=== PATIENT | female | born 1935 | race Caucasian/White ===

== ENCOUNTER 2018-02-07 10:09 | Inpatient (IN) | payer MEDICARE, OTHER ==
[~2018-02-07] VITALS: Ht 157.5 cm; Wt 62.8 kg
[2018-02-07 10:43] LABS: BASOPHILS % (AUTO) 0.1 % (0-1); EOSINOPHILS % (AUTO) 0 % (0-6); HEMATOCRIT 39.1 % (35.0-45.0); HEMOGLOBIN 13.1 g/dl (12.0-16.0); LYMPHOCYTES # (AUTO) 1.5 X10'3 (1.1-4.8); LYMPHOCYTES % (AUTO) 6.9 % (21-51); MEAN CORPUSCULAR HEMOGLOBIN 31.3 PG (27.0-31.0); MEAN CORPUSCULAR HGB CONC 33.5 % (33.0-36.5); MEAN CORPUSCULAR VOLUME 93.6 FL (78-98); MEAN PLATELET VOLUME 9.1 FL (7.4-10.4); MONOCYTES # (AUTO) 1.5 X10'3 (0-0.9); MONOCYTES % (AUTO) 6.9 % (2-12); NEUTROPHILS # (AUTO) 19.2 X10'3 (1.8-7.7); NEUTROPHILS % (AUTO) 86.1 % (42-75); PLATELET COUNT 271 X10'3 (140-440); RED BLOOD COUNT 4.18 X10'6 (4.20-5.60); WHITE BLOOD COUNT 22.3 X10'3 (4.5-11.0)
[2018-02-07 10:55] LABS: INR 0.9 INR; PROTHROMBIN TIME 9.6 SECONDS (9.0-12.0)
[2018-02-07 10:56] LABS: PARTIAL THROMBOPLASTIN TIME 32 SECONDS (22-32)
[2018-02-07 10:58] LABS: ALANINE AMINOTRANSFERASE 34 U/L (12-78); ALBUMIN 2.9 G/DL (3.4-5.0); ALBUMIN/GLOBULIN RATIO 0.6 (1.1-1.5); ALKALINE PHOSPHATASE 88 IU/L (46-116); ANION GAP 12 (8-16); ASPARTATE AMINO TRANSFERASE 23 U/L (10-37); BILIRUBIN,TOTAL 1.2 MG/DL (0.1-1.0); BLOOD UREA NITROGEN 29 MG/DL (7-18); BUN/CREATININE RATIO 19.5 (6.6-38.0); CHLORIDE 98 MMOL/L (99-107); CREATININE 1.49 MG/DL (0.40-0.90); GLUCOSE 112 MG/DL (70-104); POTASSIUM 3.8 MMOL/L (3.5-5.1); SODIUM 137 MMOL/L (135-145); TOTAL CARBON DIOXIDE 26.8 MMOL/L (24-32); TOTAL PROTEIN 7.9 G/DL (6.4-8.2); eGFR 34 ML/MIN
[2018-02-07] MEDS ORDERED: enoxaparin 100mg/ml syringe SUBCUT ONE (12:45)
[2018-02-07] MEDS ORDERED: aspirin 81mg tab.chew PO ONE (12:45)
[2018-02-07] MEDS ORDERED: enoxaparin 60mg/0.6ml syringe SUBCUT ONE (12:50)
[2018-02-07] MEDS: furosemide 40mg/4ml inj IV SCH (13:30)
[2018-02-07] MEDS ORDERED: morphine 2 MG/ML inj. syringe IV PRN (13:30)
[2018-02-07] MEDS ORDERED: acetaminophen 325mg tablet PO PRN (13:30)
[2018-02-07] MEDS ORDERED: potassium Cl 20 mEq SR tablet PO PRN (13:30)
[2018-02-07] MEDS ORDERED: mag hydrox/Alum hydrox/simeth 30ml oral suspension PO PRN (13:30)
[2018-02-07] MEDS ORDERED: HYDROcodone/acetaminophen 5mg/325mg tablet PO PRN (13:30)
[2018-02-07] MEDS ORDERED: ondansetron/PF 4mg/2ml inj IV PRN (13:30)
[2018-02-07] MEDS ORDERED: magnesium 1gm/100ml D5W IVPB 100 ML IV PRN (13:30)
[2018-02-07] MEDS ORDERED: magnesium 4gm in 100ml NS 100 ML IV PRN (13:30)
[2018-02-07] MEDS ORDERED: potassium Cl 40MEQ/NS 500ml 500 ML IV PRN ×2 (13:30)
[2018-02-07] MEDS ORDERED: magnesium Cl slow-release 64mg tablet PO PRN (13:30)
[2018-02-07 13:52] LABS: TOTAL CELLS COUNTED 100
[2018-02-07 13:53] LABS: PLATELET ESTIMATE NORMAL; TOXIC GRANULATION 2+; TOXIC VACUOLATION 2+
[2018-02-07 15:32] LABS: CLARITY,URINE SLIGHTLY CLOUDY (Clear); COLOR,URINE YELLOW (Yellow); GLUCOSE, URINE NEGATIVE (Neg); KETONES,URINE >=80 mg/dl (Neg); LEUKOCYTE ESTERASE ,URINE SMALL (Neg); NITRITES, URINE NEGATIVE (Neg); OCCULT BLOOD,URINE MODERATE (Neg); PROTEIN,URINE 100 mg/dl (Neg); UROBILINOGEN,URINE 0.2 E.U/dL (0.2-1.0)
[2018-02-07 15:38] LABS: UA COLLECTION TYPE CLN CATCH MIDSTREAM
[2018-02-07 15:40] LABS: BACTERIA,URINE 4+ /HPF (Neg); SQUAMOUS EPITHELIAL CELL,UR MANY /LPF (FEW); TRANSITIONAL EPI CELLS,URINE FEW /HPF; WBC,URINE 30-50 /HPF (0-4)
[2018-02-07 15:41] LABS: RBC,URINE 0-2 /HPF (0-2)
[2018-02-07] MEDS ORDERED: LIOT5TAB7 PO (15:49)
[2018-02-07] MEDS ORDERED: THYROXINE PO (15:49)
[2018-02-07] MEDS ORDERED: AMLO-307 PO (15:49)
[2018-02-07] MEDS ORDERED: LOSA1TAB39 PO (15:49)
[2018-02-07 16:05] VITALS: BP 129/67
[2018-02-07] MEDS ORDERED: CALC-1051 PO (16:50)
[2018-02-07] MEDS ORDERED: ASPI81TA52 PO (16:50)
[2018-02-07] MEDS ORDERED: MAGN500C16 PO (16:50)
[2018-02-07] MEDS ORDERED: LEVO25TA7 PO (16:50)
[2018-02-07 18:00] VITALS: BP 149/64
[2018-02-08] VITALS: BP 156/68
[2018-02-08 05:38] LABS: BASOPHILS # (AUTO) 0.1 X10'3 (0-0.2); BASOPHILS % (AUTO) 0.4 % (0-1); EOSINOPHILS % (AUTO) 0.1 % (0-6); HEMATOCRIT 36.2 % (35.0-45.0); HEMOGLOBIN 12.3 g/dl (12.0-16.0); LYMPHOCYTES # (AUTO) 1.7 X10'3 (1.1-4.8); LYMPHOCYTES % (AUTO) 9.7 % (21-51); MEAN CORPUSCULAR HEMOGLOBIN 31.3 PG (27.0-31.0); MEAN CORPUSCULAR HGB CONC 33.9 % (33.0-36.5); MEAN CORPUSCULAR VOLUME 92.3 FL (78-98); MEAN PLATELET VOLUME 10.1 FL (7.4-10.4); MONOCYTES # (AUTO) 1.8 X10'3 (0-0.9); MONOCYTES % (AUTO) 10.2 % (2-12); NEUTROPHILS # (AUTO) 13.8 X10'3 (1.8-7.7); NEUTROPHILS % (AUTO) 79.6 % (42-75); PLATELET COUNT 261 X10'3 (140-440); RED BLOOD COUNT 3.92 X10'6 (4.20-5.60); RED CELL DISTRIBUTION WIDTH 13.6 % (11.5-14.5); WHITE BLOOD COUNT 17.3 X10'3 (4.5-11.0)
[2018-02-08 06:02] LABS: ALANINE AMINOTRANSFERASE 34 U/L (12-78); ALBUMIN 2.5 G/DL (3.4-5.0); ALBUMIN/GLOBULIN RATIO 0.5 (1.1-1.5); ALKALINE PHOSPHATASE 89 IU/L (46-116); ANION GAP 12 (8-16); ASPARTATE AMINO TRANSFERASE 34 U/L (10-37); BILIRUBIN,TOTAL 0.8 MG/DL (0.1-1.0); BLOOD UREA NITROGEN 27 MG/DL (7-18); BUN/CREATININE RATIO 22.1 (6.6-38.0); CALCIUM 8.6 MG/DL (8.5-10.1); CHLORIDE 99 MMOL/L (99-107); CREATININE 1.22 MG/DL (0.40-0.90); GLUCOSE 119 MG/DL (70-104); MAGNESIUM 1.6 MG/DL (1.5-2.4); SODIUM 136 MMOL/L (135-145); TOTAL CARBON DIOXIDE 24.9 MMOL/L (24-32); TOTAL PROTEIN 7.1 G/DL (6.4-8.2); eGFR 42 ML/MIN
[2018-02-08 06:30] LABS: POTASSIUM 2.8 MMOL/L (3.5-5.1)
[2018-02-08 06:35] LABS: TOTAL CELLS COUNTED 100
[2018-02-08 06:36] LABS: PLATELET ESTIMATE NORMAL
[2018-02-08] MEDS: K and/or MAG REPLACEMENT MC SCH (07:35)
[2018-02-08] MEDS: enoxaparin 40mg/0.4ml syringe SUBCUT SCH (07:44)
[2018-02-08] MEDS: furosemide 40mg/4ml inj IV SCH (07:44)
[2018-02-08 08:00] VITALS: BP 130/61
[2018-02-08 11:00] VITALS: BP 124/65
[2018-02-08] MEDS: potassium Cl 20 mEq SR tablet PO PRN ×2 (11:51→17:04)
[2018-02-08] MEDS ORDERED: nitroGLYCERIN 0.4mg SUBLingual tab SL PRN (12:05)
[2018-02-08] MEDS ORDERED: regadenoson 0.4mg/5ml syringe IV PRN (12:05)
[2018-02-08] MEDS ORDERED: aminophylline 250mg/10ml inj. IV PRN (12:05)
[2018-02-08] MEDS ORDERED: metoprolol tartrate 1mg/ml inj IV PRN (12:05)
[2018-02-08 13:03] LABS: CLARITY,URINE CLEAR (Clear); COLOR,URINE YELLOW (Yellow); GLUCOSE, URINE NEGATIVE (Neg); KETONES,URINE NEGATIVE (Neg); LEUKOCYTE ESTERASE ,URINE TRACE (Neg); OCCULT BLOOD,URINE SMALL (Neg); PROTEIN,URINE NEGATIVE (Neg); UROBILINOGEN,URINE 0.2 E.U/dL (0.2-1.0)
[2018-02-08 13:04] LABS: NITRITES, URINE NEGATIVE (Neg); UA COLLECTION TYPE VOIDED
[2018-02-08 13:10] LABS: BACTERIA,URINE 3+ /HPF (Neg); MUCUS STRANDS NONE SEEN /LPF (Neg); RBC,URINE 0-2 /HPF (0-2); SQUAMOUS EPITHELIAL CELL,UR NONE SEEN /LPF (FEW)
[2018-02-08] MEDS: magnesium hydroxide 30ml (MOM) UD suspension PO PRN (15:35)
[2018-02-08 18:00] VITALS: BP 131/70
[2018-02-08] MEDS: ciprofloxacin 250mg tablet PO SCH (22:51)
[2018-02-08] MEDS: temazepam 15mg capsule PO PRN (23:12)
[2018-02-09] VITALS (15 sets, daily range): BP systolic 95–156; BP diastolic 47–77
[2018-02-09 06:23] LABS: BASOPHILS % (AUTO) 0.1 % (0-1); EOSINOPHILS % (AUTO) 0.1 % (0-6); HEMATOCRIT 40.3 % (35.0-45.0); HEMOGLOBIN 13.5 g/dl (12.0-16.0); LYMPHOCYTES # (AUTO) 1.4 X10'3 (1.1-4.8); LYMPHOCYTES % (AUTO) 6.9 % (21-51); MEAN CORPUSCULAR HEMOGLOBIN 31.3 PG (27.0-31.0); MEAN CORPUSCULAR HGB CONC 33.6 % (33.0-36.5); MEAN CORPUSCULAR VOLUME 93.2 FL (78-98); MEAN PLATELET VOLUME 10.1 FL (7.4-10.4); MONOCYTES # (AUTO) 2.3 X10'3 (0-0.9); MONOCYTES % (AUTO) 11.1 % (2-12); NEUTROPHILS # (AUTO) 16.9 X10'3 (1.8-7.7); NEUTROPHILS % (AUTO) 81.8 % (42-75); PLATELET COUNT 303 X10'3 (140-440); RED BLOOD COUNT 4.32 X10'6 (4.20-5.60); RED CELL DISTRIBUTION WIDTH 13.9 % (11.5-14.5); WHITE BLOOD COUNT 20.7 X10'3 (4.5-11.0)
[2018-02-09 06:58] LABS: ALANINE AMINOTRANSFERASE 38 U/L (12-78); ALBUMIN 2.8 G/DL (3.4-5.0); ALBUMIN/GLOBULIN RATIO 0.5 (1.1-1.5); ALKALINE PHOSPHATASE 100 IU/L (46-116); ANION GAP 13 (8-16); ASPARTATE AMINO TRANSFERASE 28 U/L (10-37); BILIRUBIN,TOTAL 0.8 MG/DL (0.1-1.0); BLOOD UREA NITROGEN 27 MG/DL (7-18); BUN/CREATININE RATIO 21.8 (6.6-38.0); CALCIUM 9.1 MG/DL (8.5-10.1); CHLORIDE 100 MMOL/L (99-107); CREATININE 1.24 MG/DL (0.40-0.90); GLUCOSE 111 MG/DL (70-104); MAGNESIUM 1.8 MG/DL (1.5-2.4); POTASSIUM 4.3 MMOL/L (3.5-5.1); SODIUM 137 MMOL/L (135-145); TOTAL CARBON DIOXIDE 23.6 MMOL/L (24-32); TOTAL PROTEIN 8.2 G/DL (6.4-8.2); eGFR 41 ML/MIN
[2018-02-09 07:59] LABS: PLATELET ESTIMATE NORMAL; TOTAL CELLS COUNTED 100
[2018-02-09] MEDS: K and/or MAG REPLACEMENT MC SCH (08:00)
[2018-02-09] MEDS ORDERED: magnesium oxide 400mg tablet PO SCH (08:00)
[2018-02-09] MEDS: HYDROchlorothiazide 25mg tablet PO SCH (08:08)
[2018-02-09] MEDS: liothyronine sod 5mcg tablet PO SCH (08:08)
[2018-02-09] MEDS: atorvastatin 20mg tablet PO SCH (08:08)
[2018-02-09] MEDS: calcium carbonate/vitamin D3 tablet PO SCH (08:08)
[2018-02-09] MEDS: aspirin 81mg tablet.DR PO SCH (08:08)
[2018-02-09] MEDS: amLODIPine 5mg tablet PO SCH (08:08)
[2018-02-09] MEDS: losartan 50mg tablet PO SCH (08:08)
[2018-02-09] MEDS: magnesium oxide 400mg tablet PO SCH (08:09)
[2018-02-09] MEDS: furosemide 40mg/4ml inj IV SCH (08:09)
[2018-02-09] MEDS: levoTHYROXINE 25mcg tablet PO SCH (08:09)
[2018-02-09] MEDS: ciprofloxacin 250mg tablet PO SCH ×2 (09:38→21:55)
[2018-02-09] MEDS ORDERED: aminophylline inj. 10 ML IV ONE (11:19)
[2018-02-09] MEDS ORDERED: regadenoson 0.4mg/5ml syringe IV ONE (11:19)
[2018-02-09] MEDS: enoxaparin 40mg/0.4ml syringe SUBCUT SCH (12:34)
[2018-02-09] MEDS: CefTRIAXone/D5W-Rocephin 1gm 50 ML IV SCH (12:52)
[2018-02-09] MEDS ORDERED: Melatonin 3mg tablet PO PRN (16:10)
[2018-02-09] MEDS: temazepam 15mg capsule PO PRN (21:55)
[2018-02-10] VITALS: BP 128/70
[2018-02-10 04:39] LABS: BASOPHILS % (AUTO) 0.1 % (0-1); EOSINOPHILS % (AUTO) 0.1 % (0-6); HEMATOCRIT 38.1 % (35.0-45.0); HEMOGLOBIN 12.8 g/dl (12.0-16.0); LYMPHOCYTES # (AUTO) 1.4 X10'3 (1.1-4.8); LYMPHOCYTES % (AUTO) 6.8 % (21-51); MEAN CORPUSCULAR HEMOGLOBIN 30.9 PG (27.0-31.0); MEAN CORPUSCULAR HGB CONC 33.6 % (33.0-36.5); MEAN CORPUSCULAR VOLUME 92.2 FL (78-98); MEAN PLATELET VOLUME 9.2 FL (7.4-10.4); MONOCYTES # (AUTO) 2.3 X10'3 (0-0.9); MONOCYTES % (AUTO) 10.9 % (2-12); NEUTROPHILS % (AUTO) 82.1 % (42-75); PLATELET COUNT 337 X10'3 (140-440); RED BLOOD COUNT 4.14 X10'6 (4.20-5.60); WHITE BLOOD COUNT 20.7 X10'3 (4.5-11.0)
[2018-02-10 04:51] LABS: ALANINE AMINOTRANSFERASE 40 U/L (12-78); ALBUMIN 2.3 G/DL (3.4-5.0); ALBUMIN/GLOBULIN RATIO 0.5 (1.1-1.5); ALKALINE PHOSPHATASE 99 IU/L (46-116); ANION GAP 10 (8-16); ASPARTATE AMINO TRANSFERASE 35 U/L (10-37); BILIRUBIN,TOTAL 0.6 MG/DL (0.1-1.0); BLOOD UREA NITROGEN 31 MG/DL (7-18); BUN/CREATININE RATIO 21.7 (6.6-38.0); CALCIUM 9.2 MG/DL (8.5-10.1); CHLORIDE 99 MMOL/L (99-107); CREATININE 1.43 MG/DL (0.40-0.90); GLUCOSE 142 MG/DL (70-104); MAGNESIUM 1.8 MG/DL (1.5-2.4); POTASSIUM 3.6 MMOL/L (3.5-5.1); SODIUM 137 MMOL/L (135-145); TOTAL CARBON DIOXIDE 28.2 MMOL/L (24-32); TOTAL PROTEIN 7.4 G/DL (6.4-8.2); eGFR 35 ML/MIN
[2018-02-10 07:31] VITALS: BP 126/67
[2018-02-10] MEDS: K and/or MAG REPLACEMENT MC SCH (08:00)
[2018-02-10] MEDS: magnesium oxide 400mg tablet PO SCH (08:52)
[2018-02-10] MEDS: calcium carbonate/vitamin D3 tablet PO SCH (08:52)
[2018-02-10] MEDS: HYDROchlorothiazide 25mg tablet PO SCH (08:53)
[2018-02-10] MEDS: aspirin 81mg tablet.DR PO SCH (08:53)
[2018-02-10] MEDS: atorvastatin 20mg tablet PO SCH (08:54)
[2018-02-10] MEDS: amLODIPine 5mg tablet PO SCH (08:54)
[2018-02-10] MEDS: levoTHYROXINE 25mcg tablet PO SCH (08:54)
[2018-02-10] MEDS: furosemide 40mg/4ml inj IV SCH (08:57)
[2018-02-10] MEDS: enoxaparin 40mg/0.4ml syringe SUBCUT SCH (08:57)
[2018-02-10] MEDS: CefTRIAXone/D5W-Rocephin 1gm 50 ML IV SCH (09:06)
[2018-02-10] MEDS: losartan 50mg tablet PO SCH (09:09)
[2018-02-10] MEDS: ciprofloxacin 250mg tablet PO SCH (09:23)
[2018-02-10] MEDS: magnesium hydroxide 30ml (MOM) UD suspension PO PRN (12:37)
[2018-02-10] MEDS: liothyronine sod 5mcg tablet PO SCH (12:37)
[2018-02-10 12:43] VITALS: BP 103/58
[2018-02-10 12:46] VITALS: BP_SYST 103; BP_SYST 105; BP_SYST 80; BP_DIAS 53; BP_DIAS 55
[2018-02-10 13:44] VITALS: BP 99/57
[2018-02-10 14:37] LABS: CLARITY,URINE SLIGHTLY CLOUDY (Clear); COLOR,URINE YELLOW (Yellow); GLUCOSE, URINE NEGATIVE (Neg); KETONES,URINE NEGATIVE (Neg); LEUKOCYTE ESTERASE ,URINE SMALL (Neg); NITRITES, URINE NEGATIVE (Neg); OCCULT BLOOD,URINE TRACE-INTACT (Neg); PROTEIN,URINE NEGATIVE (Neg); UROBILINOGEN,URINE 0.2 E.U/dL (0.2-1.0)
[2018-02-10 14:48] LABS: UA COLLECTION TYPE NON-SPECIFIED
[2018-02-10 14:51] LABS: BACTERIA,URINE FEW /HPF (Neg); MUCUS STRANDS FEW /LPF (Neg); RBC,URINE 0-2 /HPF (0-2); SQUAMOUS EPITHELIAL CELL,UR MANY /LPF (FEW)
[2018-02-10] MEDS: normal saline 1000ml 1,000 ML IV SCH (17:33)
[2018-02-10] MEDS: lactobacillus rhamnosus 10,000 MMU CELLS/CAPSULE PO SCH (19:54)
[2018-02-10 20:00] VITALS: BP_SYST 115; BP_SYST 119; BP_SYST 120; BP_DIAS 62; BP_DIAS 70; BP_DIAS 75
[2018-02-11] VITALS: BP 132/63
[2018-02-11] MEDS ORDERED: bisacodyl 10mg suppository rectal RC STA (04:55)
[2018-02-11 06:11] LABS: BASOPHILS # (AUTO) 0.1 X10'3 (0-0.2); BASOPHILS % (AUTO) 0.3 % (0-1); EOSINOPHILS # (AUTO) 0.1 X10'3 (0-0.9); EOSINOPHILS % (AUTO) 0.3 % (0-6); HEMATOCRIT 36.4 % (35.0-45.0); HEMOGLOBIN 12.1 g/dl (12.0-16.0); LYMPHOCYTES % (AUTO) 8.6 % (21-51); MEAN CORPUSCULAR HEMOGLOBIN 30.9 PG (27.0-31.0); MEAN CORPUSCULAR HGB CONC 33.2 % (33.0-36.5); MEAN CORPUSCULAR VOLUME 92.8 FL (78-98); MEAN PLATELET VOLUME 9.9 FL (7.4-10.4); MONOCYTES # (AUTO) 2.1 X10'3 (0-0.9); NEUTROPHILS # (AUTO) 18.7 X10'3 (1.8-7.7); NEUTROPHILS % (AUTO) 81.8 % (42-75); PLATELET COUNT 355 X10'3 (140-440); RED BLOOD COUNT 3.92 X10'6 (4.20-5.60); RED CELL DISTRIBUTION WIDTH 13.8 % (11.5-14.5); WHITE BLOOD COUNT 22.8 X10'3 (4.5-11.0)
[2018-02-11 06:39] LABS: ALANINE AMINOTRANSFERASE 45 U/L (12-78); ALBUMIN 2.1 G/DL (3.4-5.0); ALBUMIN/GLOBULIN RATIO 0.4 (1.1-1.5); ALKALINE PHOSPHATASE 101 IU/L (46-116); ANION GAP 11 (8-16); ASPARTATE AMINO TRANSFERASE 45 U/L (10-37); BILIRUBIN,TOTAL 0.5 MG/DL (0.1-1.0); BLOOD UREA NITROGEN 36 MG/DL (7-18); BUN/CREATININE RATIO 23.4 (6.6-38.0); CALCIUM 8.9 MG/DL (8.5-10.1); CHLORIDE 97 MMOL/L (99-107); CREATININE 1.54 MG/DL (0.40-0.90); GLUCOSE 134 MG/DL (70-104); MAGNESIUM 1.7 MG/DL (1.5-2.4); POTASSIUM 3.2 MMOL/L (3.5-5.1); SODIUM 135 MMOL/L (135-145); TOTAL CARBON DIOXIDE 27.1 MMOL/L (24-32); TOTAL PROTEIN 7.1 G/DL (6.4-8.2); eGFR 32 ML/MIN
[2018-02-11 07:00] VITALS: BP 118/54
[2018-02-11 08:00] VITALS: BP_SYST 104; BP_SYST 108; BP_SYST 99; BP_DIAS 51; BP_DIAS 52; BP_DIAS 58
[2018-02-11] MEDS: K and/or MAG REPLACEMENT MC SCH ×2 (08:00→09:45)
[2018-02-11] MEDS: CefTRIAXone/D5W-Rocephin 1gm 50 ML IV SCH (08:40)
[2018-02-11] MEDS: atorvastatin 20mg tablet PO SCH (08:42)
[2018-02-11] MEDS: magnesium oxide 400mg tablet PO SCH (08:42)
[2018-02-11] MEDS: levoTHYROXINE 25mcg tablet PO SCH (08:42)
[2018-02-11] MEDS: calcium carbonate/vitamin D3 tablet PO SCH (08:42)
[2018-02-11] MEDS: aspirin 81mg tablet.DR PO SCH (08:42)
[2018-02-11] MEDS: amLODIPine 5mg tablet PO SCH (08:42)
[2018-02-11] MEDS: lactobacillus rhamnosus 10,000 MMU CELLS/CAPSULE PO SCH ×2 (08:42→20:07)
[2018-02-11] MEDS: losartan 50mg tablet PO SCH (08:43)
[2018-02-11] MEDS: liothyronine sod 5mcg tablet PO SCH (09:16)
[2018-02-11] MEDS: enoxaparin 40mg/0.4ml syringe SUBCUT SCH (09:17)
[2018-02-11] MEDS ORDERED: potassium Cl 40MEQ/NS 500ml 500 ML IV PRN ×2 (09:45)
[2018-02-11] MEDS ORDERED: potassium Cl 20 mEq SR tablet PO PRN (09:45)
[2018-02-11] MEDS: potassium Cl 20 mEq SR tablet PO PRN ×3 (10:16→20:10)
[2018-02-11 10:39] LABS: CLARITY,URINE SLIGHTLY CLOUDY (Clear); COLOR,URINE YELLOW (Yellow); GLUCOSE, URINE NEGATIVE (Neg); KETONES,URINE NEGATIVE (Neg); LEUKOCYTE ESTERASE ,URINE TRACE (Neg); NITRITES, URINE NEGATIVE (Neg); OCCULT BLOOD,URINE TRACE-INTACT (Neg); PROTEIN,URINE NEGATIVE (Neg); UROBILINOGEN,URINE 0.2 E.U/dL (0.2-1.0)
[2018-02-11 10:45] LABS: UA COLLECTION TYPE CLN CATCH MIDSTREAM
[2018-02-11 11:01] LABS: WBC,URINE 20-30 /HPF (0-4)
[2018-02-11 11:08] LABS: BACTERIA,URINE FEW /HPF (Neg); RBC,URINE 0-2 /HPF (0-2)
[2018-02-11 11:09] LABS: CELLULAR CAST 0-4 /LPF (NEGATIVE); SQUAMOUS EPITHELIAL CELL,UR FEW /LPF (FEW)
[2018-02-11 12:00] VITALS: BP 99/58
[2018-02-11 12:38] LABS: D-DIMER 2.02 MG/L FEU (0-0.50)
[2018-02-11] MEDS: normal saline 1000ml 1,000 ML IV SCH (14:24)
[2018-02-11 20:00] VITALS: BP_SYST 111; BP_SYST 116; BP_DIAS 52; BP_DIAS 56
[2018-02-12 00:19] VITALS: BP 124/62
[2018-02-12 06:14] LABS: BASOPHILS # (AUTO) 0.1 X10'3 (0-0.2); BASOPHILS % (AUTO) 0.5 % (0-1); EOSINOPHILS # (AUTO) 0.3 X10'3 (0-0.9); EOSINOPHILS % (AUTO) 1.2 % (0-6); HEMATOCRIT 36.8 % (35.0-45.0); HEMOGLOBIN 12.2 g/dl (12.0-16.0); LYMPHOCYTES # (AUTO) 2.6 X10'3 (1.1-4.8); LYMPHOCYTES % (AUTO) 10.9 % (21-51); MEAN CORPUSCULAR HGB CONC 33.1 % (33.0-36.5); MEAN CORPUSCULAR VOLUME 93.5 FL (78-98); MEAN PLATELET VOLUME 9.6 FL (7.4-10.4); MONOCYTES # (AUTO) 1.1 X10'3 (0-0.9); MONOCYTES % (AUTO) 4.6 % (2-12); NEUTROPHILS # (AUTO) 19.6 X10'3 (1.8-7.7); NEUTROPHILS % (AUTO) 82.8 % (42-75); PLATELET COUNT 435 X10'3 (140-440); RED BLOOD COUNT 3.93 X10'6 (4.20-5.60); RED CELL DISTRIBUTION WIDTH 14.1 % (11.5-14.5); WHITE BLOOD COUNT 23.6 X10'3 (4.5-11.0)
[2018-02-12 06:34] LABS: ALANINE AMINOTRANSFERASE 58 U/L (12-78); ALBUMIN/GLOBULIN RATIO 0.4 (1.1-1.5); ALKALINE PHOSPHATASE 105 IU/L (46-116); ANION GAP 9 (8-16); ASPARTATE AMINO TRANSFERASE 57 U/L (10-37); BILIRUBIN,TOTAL 0.5 MG/DL (0.1-1.0); BLOOD UREA NITROGEN 36 MG/DL (7-18); BUN/CREATININE RATIO 19.6 (6.6-38.0); CALCIUM 8.9 MG/DL (8.5-10.1); CHLORIDE 101 MMOL/L (99-107); CREATININE 1.84 MG/DL (0.40-0.90); GLUCOSE 107 MG/DL (70-104); MAGNESIUM 1.9 MG/DL (1.5-2.4); POTASSIUM 3.7 MMOL/L (3.5-5.1); SODIUM 138 MMOL/L (135-145); TOTAL CARBON DIOXIDE 27.6 MMOL/L (24-32); TOTAL PROTEIN 6.9 G/DL (6.4-8.2); eGFR 26 ML/MIN
[2018-02-12 07:19] VITALS: BP 123/59
[2018-02-12] MEDS: K and/or MAG REPLACEMENT MC SCH ×2 (07:53)
[2018-02-12] MEDS ORDERED: enoxaparin 30mg/0.3ml syringe SUBCUT SCH (08:00)
[2018-02-12] MEDS: liothyronine sod 5mcg tablet PO SCH (08:04)
[2018-02-12] MEDS: atorvastatin 20mg tablet PO SCH (08:04)
[2018-02-12] MEDS: losartan 50mg tablet PO SCH (08:04)
[2018-02-12] MEDS: levoTHYROXINE 25mcg tablet PO SCH (08:04)
[2018-02-12] MEDS: aspirin 81mg tablet.DR PO SCH (08:04)
[2018-02-12] MEDS: magnesium oxide 400mg tablet PO SCH (08:04)
[2018-02-12] MEDS: calcium carbonate/vitamin D3 tablet PO SCH (08:04)
[2018-02-12] MEDS: amLODIPine 5mg tablet PO SCH (08:04)
[2018-02-12] MEDS: lactobacillus rhamnosus 10,000 MMU CELLS/CAPSULE PO SCH (08:04)
[2018-02-12] MEDS: normal saline 1000ml 1,000 ML IV SCH (09:25)
[2018-02-12 11:42] VITALS: BP 106/60
== END 2018-02-12 13:03 | disposition home or self-care (01) | DRG 682 ==
LOC: ER 10:09 → ED HOLD 13:30 → SUR 3N 16:18
PROVIDERS: ADMIT Internal Medicine; ATTEND Family Medicine
PROC: 4A02XM4 Measurement of Cardiac Total Activity, External Approach (ICD-10-PCS; principal; 2018-02-09)
PROC: 3E033HZ Introduction of Radioactive Substance into Peripheral Vein, Percutaneous Approach (ICD-10-PCS; 2018-02-09)
PROC: CB221ZZ Tomographic (Tomo) Nuclear Medicine Imaging of Lungs and Bronchi using Technetium 99m (Tc-99m) (ICD-10-PCS; 2018-02-11)
DX: N17.9 Acute kidney failure, unspecified (principal); I50.33 Acute on chronic diastolic (congestive) heart failure; I13.0 Hypertensive heart and chronic kidney disease with heart failure and stage 1 through stage 4 chronic kidney disease, or unspecified chronic kidney disease; R65.10 Systemic inflammatory response syndrome (SIRS) of non-infectious origin without acute organ dysfunction; E03.9 Hypothyroidism, unspecified; E87.6 Hypokalemia; E78.5 Hyperlipidemia, unspecified; N18.9 Chronic kidney disease, unspecified; D72.821 Monocytosis (symptomatic); K59.00 Constipation, unspecified; Z93.3 Colostomy status; Z88.2 Allergy status to sulfonamides; Z90.49 Acquired absence of other specified parts of digestive tract
CPT/HCPCS: 36415; 71045; 71250; 78452; 78582; 80053; 81001; 82948; 83605; 83735; 83880; 84145; 84484; 85025; 85379; 85610; 85730; 86694; 87040; 87070; 87088; 93005; 93017; 93306; 96372; 96374; 97116; 97162; 97530; 99285; A9500; A9539; A9540; G0378; J0280; J0696; J1650; J1940; J7030

== ENCOUNTER 2018-03-04 08:43 | Outpatient (CLI) | payer MEDICARE, OTHER ==
[~2018-03-04 08:43] MED LIST: AMLO-307 PO; ASPI81TA52 PO; CALC-1051 PO; LEVO25TA7 PO; LIOT5TAB7 PO; LOSA1TAB39 PO; MAGN500C16 PO
== END 2018-03-04 23:59 | disposition home or self-care (01) ==
LOC: RAD 08:43
PROVIDERS: ATTEND Internal Medicine
DX: D72.829 Elevated white blood cell count, unspecified (principal); I10 Essential (primary) hypertension; Z72.89 Other problems related to lifestyle; Z87.891 Personal history of nicotine dependence; Z88.2 Allergy status to sulfonamides
CPT/HCPCS: 78806; A9570

== ENCOUNTER 2024-01-29 14:17 | Emergency (ER) | payer BC, MEDICARE, OTHER ==
[~2024-01-29] VITALS: Ht 157.5 cm; Wt 67.3 kg
[~2024-01-29 14:17] MED LIST changes: +LIOT5TAB10 PO; -LIOT5TAB7 PO; -MAGN500C16 PO; +MAGN500C4 PO
[2024-01-29] MEDS: TETanus/Pertussis (Acell)/Diphther VAC/PF (Tdap-Adult) 0.5ml syringe IMVAC ONE (16:18)
[2024-01-29 16:30] VITALS: BP 127/70; PULSE 77; RESP 16; TEMP 98.2; O2SAT 98
== END 2024-01-29 16:37 | disposition home or self-care (01) ==
LOC: ER 14:19
DX: S00.83XA Contusion of other part of head, initial encounter (principal); S09.8XXA Other specified injuries of head, initial encounter; I10 Essential (primary) hypertension; Z79.899 Other long term (current) drug therapy; Z79.82 Long term (current) use of aspirin; X58.XXXA Exposure to other specified factors, initial encounter; Y93.9 Activity, unspecified; Y92.89 Other specified places as the place of occurrence of the external cause; Y99.8 Other external cause status
CPT/HCPCS: 70450; 90471; 90715; 99285

== ENCOUNTER 2024-02-19 07:38 | Emergency (ER) | payer BC ==
[~2024-02-19] VITALS: Ht 157.5 cm; Wt 61.8 kg
[2024-02-19 07:43] VITALS: TEMP 97.3
[2024-02-19 08:35] LABS: BASOPHILS # (AUTO) 0.1 X10'3 (0-0.2); BASOPHILS % (AUTO) 1.1 % (0-1); EOSINOPHILS # (AUTO) 0.4 X10'3 (0-0.9); EOSINOPHILS % (AUTO) 4.6 % (0-6); HEMATOCRIT 41.4 % (35.0-45.0); HEMOGLOBIN 13.6 g/dl (12.0-16.0); LYMPHOCYTES # (AUTO) 2.9 X10'3 (1.1-4.8); LYMPHOCYTES % (AUTO) 32.8 % (21-51); MEAN CORPUSCULAR HEMOGLOBIN 31.8 PG (27.0-31.0); MEAN CORPUSCULAR HGB CONC 32.9 g/dL (33.0-36.5); MEAN CORPUSCULAR VOLUME 96.6 FL (78-98); MEAN PLATELET VOLUME 9.1 FL (7.4-10.4); MONOCYTES # (AUTO) 0.7 X10'3 (0-0.9); MONOCYTES % (AUTO) 7.5 % (2-12); NEUTROPHILS # (AUTO) 4.8 X10'3 (1.8-7.7); PLATELET COUNT 307 X10'3 (140-440); RED BLOOD COUNT 4.29 X10'6 (4.20-5.60); RED CELL DISTRIBUTION WIDTH 14.2 % (11.5-14.5); WHITE BLOOD COUNT 8.9 X10'3 (4.5-11.0)
[2024-02-19 08:54] LABS: ALANINE AMINOTRANSFERASE 23 U/L (12-78); ALBUMIN 3.6 G/DL (3.4-5.0); ALBUMIN/GLOBULIN RATIO 0.9 (1.1-1.5); ALKALINE PHOSPHATASE 122 IU/L (46-116); ANION GAP 12 (8-16); ASPARTATE AMINO TRANSFERASE 25 U/L (10-37); BILIRUBIN,TOTAL 0.5 MG/DL (0.1-1.0); BLOOD UREA NITROGEN 22 MG/DL (7-18); BUN/CREATININE RATIO 18.6 (10.0-20.0); CALCIUM 9.5 MG/DL (8.5-10.1); CHLORIDE 103 MMOL/L (99-107); CREATININE 1.18 MG/DL (0.40-0.90); GLUCOSE 118 MG/DL (70-104); SODIUM 140 MMOL/L (135-145); TOTAL CARBON DIOXIDE 25.1 MMOL/L (24-32); TOTAL PROTEIN 7.8 G/DL (6.4-8.2); eCRCL 26 ML/MIN; eGFR 43 ML/MIN
[2024-02-19 08:58] LABS: POTASSIUM 3.8 MMOL/L (3.5-5.1)
[2024-02-19 13:54] VITALS: BP 150/83; PULSE 84; RESP 16; O2SAT 97
== END 2024-02-19 13:59 | disposition home or self-care (01) ==
LOC: ER 07:38
DX: M48.061 Spinal stenosis, lumbar region without neurogenic claudication (principal); M47.26 Other spondylosis with radiculopathy, lumbar region; M47.22 Other spondylosis with radiculopathy, cervical region; I10 Essential (primary) hypertension; E03.9 Hypothyroidism, unspecified; M54.9 Dorsalgia, unspecified; Z79.01 Long term (current) use of anticoagulants; Z79.899 Other long term (current) drug therapy; Z79.82 Long term (current) use of aspirin
CPT/HCPCS: 36415; 70450; 72125; 72148; 80053; 85025; 93005; 99285; J7030; A6449